=== PATIENT | male | born 1965 | race African-American/Black ===

== ENCOUNTER 2024-05-03 15:45 | Inpatient (IN) | payer MEDICAID ==
[~2024-05-03] VITALS: Ht 175.3 cm; Wt 79.8 kg
[2024-05-03 15:45] VITALS: BP 127/87; PULSE 89; RESP 20; TEMP 36.4
[2024-05-03] MEDS: BLOOD SUGAR DIAGNOSTIC STRIP TEST SCH (17:00)
[2024-05-03] MEDS: INSULIN LISPRO 100 UNITS/ML SUBCUT SCH (17:00)
[2024-05-03] MEDS ORDERED: CLONIDINE 0.1MG TABLET PO PRN (17:00)
[2024-05-03] MEDS ORDERED: DEXTROSE 50% WATER 50ML SYRINGE IV PRN (17:00)
[2024-05-03 20:00] VITALS: BP 129/47; PULSE 70; RESP 20; TEMP 36.1; O2SAT 99
[2024-05-03] MEDS: ATORVASTATIN CALCIUM 40MG TABLET PO SCH (21:43)
[2024-05-04 08:00] VITALS: BP 144/86; PULSE 96; RESP 18; TEMP 36.2; O2SAT 99
[2024-05-04] MEDS: ENOXAPARIN 40MG/0.4ML SYR SUBCUT SCH (10:17)
[2024-05-04] MEDS: CLOPIDOGREL 75MG TABLET PO SCH (10:18)
[2024-05-04] MEDS: ASPIRIN 81MG TABLET PO SCH (10:18)
[2024-05-04 10:44] LABS: BASOPHILS % 0.2 % (0.0-2.0); EOSINOPHILS % 3.1 % (0.0-5.0); HEMATOCRIT. 40.6 % (42.0-52.0); HEMOGLOBIN. 13.6 g/dL (14.0-18.0); MEAN CORPUSCULAR HEMOGLOBIN 28.5 pg (28.0-32.0); MEAN CORPUSCULAR HGB CONC 33.4 g/dL (31.0-37.0); MEAN CORPUSCULAR VOLUME 85.3 fL (80.0-94.0); MEAN PLATELET VOLUME 7.7 fl (7.4-10.4); MONOCYTES % 7.3 % (2.0-8.0); NEUTROPHILS % 67.4 % (40.0-76.0); PLATELET 204 x1000/uL (130-400); RED BLOOD CELL COUNT 4.76 mill/uL (4.7-6.1); RED CELL DISTRIBUTION WIDTH 13.6 % (11.6-14.6); WHITE BLOOD COUNT 5.9 x1000/uL (4.5-11.0)
[2024-05-04 10:57] LABS: CHLORIDE 106 mEq/L (98-107); POTASSIUM 4.1 mEq/L (3.5-5.1); SODIUM 138 mEq/L (136-145)
[2024-05-04 10:58] LABS: CALCIUM 9.2 mg/dL (8.7-10.4); CARBON DIOXIDE 23 mEq/L (21-32)
[2024-05-04 11:03] LABS: UREA NITROGEN BLOOD 11 mg/dL (9-23)
[2024-05-04 11:05] LABS: ALANINE AMINOTRANSFERASE 21 IU/L (10-49); ASPARTATE AMINOTRANSFERASE 23 IU/L (<34); BILIRUBIN TOTAL 0.6 mg/dL (0.1-1.0); PREALBUMIN 18.8 mg/dl (10.0-40.0); PROTEIN TOTAL 7.1 g/dL (6.0-8.3)
[2024-05-04 11:18] LABS: GLUCOSE 200 mg/dL (70-105)
[2024-05-04 20:00] VITALS: BP 135/88; PULSE 83; RESP 17; TEMP 36.6; O2SAT 100
[2024-05-05 08:00] VITALS: BP 157/79; PULSE 60; RESP 20; TEMP 36.2; O2SAT 98
[2024-05-05 09:35] LABS: CHLORIDE 109 mEq/L (98-107); POTASSIUM 4.3 mEq/L (3.5-5.1); SODIUM 143 mEq/L (136-145)
[2024-05-05 09:36] LABS: CARBON DIOXIDE 26 mEq/L (21-32)
[2024-05-05 09:37] LABS: CALCIUM 9.1 mg/dL (8.7-10.4)
[2024-05-05 09:38] LABS: BASOPHILS % 0.4 % (0.0-2.0); EOSINOPHILS % 3.2 % (0.0-5.0); HEMATOCRIT. 41.7 % (42.0-52.0); LYMPHOCYTES % 27.7 % (20.0-50.0); MEAN CORPUSCULAR HEMOGLOBIN 28.7 pg (28.0-32.0); MEAN CORPUSCULAR HGB CONC 33.6 g/dL (31.0-37.0); MEAN CORPUSCULAR VOLUME 85.4 fL (80.0-94.0); MEAN PLATELET VOLUME 8.1 fl (7.4-10.4); MONOCYTES % 7.6 % (2.0-8.0); NEUTROPHILS % 61.1 % (40.0-76.0); PLATELET 219 x1000/uL (130-400); RED BLOOD CELL COUNT 4.88 mill/uL (4.7-6.1); RED CELL DISTRIBUTION WIDTH 13.4 % (11.6-14.6); WHITE BLOOD COUNT 4.6 x1000/uL (4.5-11.0)
[2024-05-05 09:41] LABS: GLUCOSE 152 mg/dL (70-105); IRON 83 ug/dL (65-175)
[2024-05-05 09:42] LABS: UREA NITROGEN BLOOD 12 mg/dL (9-23)
[2024-05-05 09:43] LABS: ALANINE AMINOTRANSFERASE 24 IU/L (10-49); ALBUMIN 4.2 g/dL (3.2-4.8); ASPARTATE AMINOTRANSFERASE 24 IU/L (<34)
[2024-05-05 09:44] LABS: BILIRUBIN TOTAL 0.7 mg/dL (0.1-1.0); PROTEIN TOTAL 7.7 g/dL (6.0-8.3); TOTAL IRON BINDING CAPACITY 250 ug/dl (250-425)
[2024-05-05 09:46] LABS: THYROID STIMULATING HORMONE 1.61 uIU/mL (0.55-4.78)
[2024-05-05 09:47] LABS: FERRITIN 347 ng/mL (22-322); FOLIC ACID (FOLATE) SERUM 19.08 ng/mL (>5.38); VITAMIN B12 SERUM 674 pg/mL (211-911)
[2024-05-05 20:00] VITALS: BP 124/62; PULSE 92; RESP 19; TEMP 36.4; O2SAT 98
[2024-05-06 08:00] VITALS: BP 121/56; PULSE 56; RESP 20; TEMP 36.3; O2SAT 98
[2024-05-06 11:51] LABS: BASOPHILS % 0.3 % (0.0-2.0); EOSINOPHILS % 3.6 % (0.0-5.0); HEMATOCRIT. 40.5 % (42.0-52.0); HEMOGLOBIN. 13.6 g/dL (14.0-18.0); LYMPHOCYTES % 25.3 % (20.0-50.0); MEAN CORPUSCULAR HEMOGLOBIN 28.7 pg (28.0-32.0); MEAN CORPUSCULAR HGB CONC 33.6 g/dL (31.0-37.0); MEAN CORPUSCULAR VOLUME 85.4 fL (80.0-94.0); MEAN PLATELET VOLUME 7.9 fl (7.4-10.4); MONOCYTES % 6.3 % (2.0-8.0); NEUTROPHILS % 64.5 % (40.0-76.0); PLATELET 254 x1000/uL (130-400); RED BLOOD CELL COUNT 4.75 mill/uL (4.7-6.1); RED CELL DISTRIBUTION WIDTH 13.4 % (11.6-14.6); WHITE BLOOD COUNT 4.6 x1000/uL (4.5-11.0)
[2024-05-06 11:55] LABS: CHLORIDE 103 mEq/L (98-107); SODIUM 139 mEq/L (136-145)
[2024-05-06 11:56] LABS: CALCIUM 9.4 mg/dL (8.7-10.4); CARBON DIOXIDE 27 mEq/L (21-32)
[2024-05-06 12:01] LABS: GLUCOSE 240 mg/dL (70-105); UREA NITROGEN BLOOD 15 mg/dL (9-23)
[2024-05-06 20:00] VITALS: BP 108/55; PULSE 70; RESP 18; TEMP 36.9; O2SAT 96
[2024-05-07 08:00] VITALS: BP 123/77; PULSE 76; RESP 19; TEMP 36.4; O2SAT 98
[2024-05-07] MEDS: LACTULOSE 20G/30ML UDC PO PRN (13:00)
[2024-05-07] MEDS: DOCUSATE SODIUM 100MG CAPSULE PO PRN (13:00)
[2024-05-07 20:00] VITALS: BP 112/92; PULSE 91; RESP 19; TEMP 36.5; O2SAT 100
[2024-05-08 08:00] VITALS: BP 120/75; PULSE 64; RESP 20; TEMP 36.1; O2SAT 100
[2024-05-08] MEDS: ERGOCALCIFEROL 50000UNITS CAPSULE PO SCH (13:07)
[2024-05-08 19:35] VITALS: BP 113/69; PULSE 95; RESP 20; TEMP 36.2; O2SAT 100
[2024-05-09 08:00] VITALS: BP 116/50; PULSE 59; RESP 18; TEMP 36.5; O2SAT 96
[2024-05-09 20:00] VITALS: BP 120/74; PULSE 94; RESP 18; TEMP 36.7; O2SAT 99
[2024-05-10 08:00] VITALS: BP 129/78; PULSE 75; RESP 20; TEMP 36.2; O2SAT 100
[2024-05-10 20:01] VITALS: BP 107/49; PULSE 61; RESP 20; TEMP 36.2; O2SAT 100
[2024-05-11 08:00] VITALS: BP 114/70; PULSE 55; RESP 18; TEMP 36.5; O2SAT 96
[2024-05-11 20:00] VITALS: BP 125/72; PULSE 74; RESP 16; TEMP 36.2; O2SAT 97
[2024-05-12 08:00] VITALS: BP 114/47; PULSE 58; RESP 18; TEMP 36.1; O2SAT 96
[2024-05-12 08:22] LABS: BASOPHILS % 0.3 % (0.0-2.0); EOSINOPHILS % 3.8 % (0.0-5.0); HEMATOCRIT. 33.7 % (42.0-52.0); HEMOGLOBIN. 11.6 g/dL (14.0-18.0); LYMPHOCYTES % 22.9 % (20.0-50.0); MEAN CORPUSCULAR HEMOGLOBIN 29.3 pg (28.0-32.0); MEAN CORPUSCULAR HGB CONC 34.4 g/dL (31.0-37.0); MEAN CORPUSCULAR VOLUME 85.4 fL (80.0-94.0); MEAN PLATELET VOLUME 7.7 fl (7.4-10.4); MONOCYTES % 8.3 % (2.0-8.0); NEUTROPHILS % 64.7 % (40.0-76.0); PLATELET 227 x1000/uL (130-400); RED BLOOD CELL COUNT 3.94 mill/uL (4.7-6.1); RED CELL DISTRIBUTION WIDTH 13.3 % (11.6-14.6); WHITE BLOOD COUNT 5.3 x1000/uL (4.5-11.0)
[2024-05-12 08:30] LABS: CALCIUM 8.7 mg/dL (8.7-10.4); CHLORIDE 106 mEq/L (98-107); POTASSIUM 4.2 mEq/L (3.5-5.1); SODIUM 139 mEq/L (136-145)
[2024-05-12 08:31] LABS: CARBON DIOXIDE 27 mEq/L (21-32)
[2024-05-12 08:36] LABS: GLUCOSE 300 mg/dL (70-105); UREA NITROGEN BLOOD 12 mg/dL (9-23)
[2024-05-12 22:01] VITALS: BP 102/49; PULSE 63; RESP 18; TEMP 36.7; O2SAT 99
[2024-05-13 08:00] VITALS: BP 128/74; PULSE 60; RESP 18; TEMP 36.1; O2SAT 96
[2024-05-13] MEDS: INSULIN GLARGINE 100 UNITS/ML SUBCUT SCH (10:00)
[2024-05-13 20:00] VITALS: BP 115/58; PULSE 67; RESP 18; TEMP 36.7; O2SAT 99
[2024-05-14 08:00] VITALS: BP 128/77; PULSE 89; RESP 20; TEMP 36.3; O2SAT 100
[2024-05-14 20:00] VITALS: BP 135/80; PULSE 76; RESP 18; TEMP 36.5; O2SAT 98
[2024-05-15 08:00] VITALS: BP 129/80; PULSE 91; RESP 20; TEMP 36.6; O2SAT 98
[2024-05-15 20:00] VITALS: BP 135/74; PULSE 73; RESP 19; TEMP 36.8; O2SAT 99
[2024-05-16 08:00] VITALS: BP 125/80; PULSE 80; RESP 18; TEMP 36.4; O2SAT 100
[2024-05-16 20:00] VITALS: BP 107/59; PULSE 80; RESP 18; TEMP 36.4; O2SAT 100
[2024-05-17 08:00] VITALS: BP 127/82; PULSE 85; RESP 20; TEMP 36.1; O2SAT 99
[2024-05-17] MEDS: INSULIN GLARGINE 100 UNITS/ML SUBCUT SCH (10:27)
[2024-05-17 20:00] VITALS: BP 100/62; PULSE 70; RESP 18; TEMP 36.4; O2SAT 98
[2024-05-18 08:00] VITALS: BP 125/85; PULSE 69; TEMP 36.4
[2024-05-18 20:00] VITALS: BP 100/57; PULSE 66; RESP 20; TEMP 36.7; O2SAT 98
[2024-05-19 08:00] VITALS: BP 138/78; PULSE 95; RESP 19; TEMP 35.9; O2SAT 100
[2024-05-19 20:00] VITALS: BP 127/87; PULSE 86; RESP 18; TEMP 36.6; O2SAT 99
[2024-05-20 06:06] LABS: BASOPHILS % 0.2 % (0.0-2.0); EOSINOPHILS % 4.5 % (0.0-5.0); HEMATOCRIT. 33.3 % (42.0-52.0); HEMOGLOBIN. 11.2 g/dL (14.0-18.0); LYMPHOCYTES % 21.3 % (20.0-50.0); MEAN CORPUSCULAR HEMOGLOBIN 29.3 pg (28.0-32.0); MEAN CORPUSCULAR HGB CONC 33.7 g/dL (31.0-37.0); MEAN PLATELET VOLUME 7.7 fl (7.4-10.4); MONOCYTES % 8.7 % (2.0-8.0); NEUTROPHILS % 65.3 % (40.0-76.0); PLATELET 205 x1000/uL (130-400); RED BLOOD CELL COUNT 3.83 mill/uL (4.7-6.1); RED CELL DISTRIBUTION WIDTH 13.3 % (11.6-14.6); WHITE BLOOD COUNT 4.7 x1000/uL (4.5-11.0)
[2024-05-20 06:21] LABS: CARBON DIOXIDE 27 mEq/L (21-32); CHLORIDE 104 mEq/L (98-107); POTASSIUM 4.5 mEq/L (3.5-5.1); SODIUM 139 mEq/L (136-145)
[2024-05-20 06:25] LABS: CREATININE 1.1 mg/dL (0.6-1.3)
[2024-05-20 06:26] LABS: GLUCOSE 258 mg/dL (70-105)
[2024-05-20 06:27] LABS: UREA NITROGEN BLOOD 15 mg/dL (9-23)
[2024-05-20 08:00] VITALS: BP 105/78; PULSE 75; RESP 18; TEMP 40.6; O2SAT 97
[2024-05-20 20:00] VITALS: BP 128/67; PULSE 76; RESP 18; TEMP 36.2; O2SAT 99
[2024-05-21 08:00] VITALS: BP 108/72; PULSE 81; RESP 19; TEMP 36.7; O2SAT 100
[2024-05-21 20:00] VITALS: BP 119/87; PULSE 81; RESP 18; TEMP 36.7; O2SAT 95
[2024-05-22 08:00] VITALS: BP 118/69; PULSE 83; RESP 20; TEMP 36.2; O2SAT 95
[2024-05-22 11:10] VITALS: BP 118/69; PULSE 83; RESP 20; TEMP 36.2; O2SAT 96
[2024-05-22 20:30] VITALS: BP 149/86; PULSE 79; RESP 18; TEMP 36.7; O2SAT 99
[2024-05-23 08:00] VITALS: BP 120/80; PULSE 70; RESP 18; TEMP 36.5; O2SAT 100
[2024-05-23 20:00] VITALS: BP 124/76; PULSE 89; RESP 18; TEMP 36.7; O2SAT 97
[2024-05-24 08:00] VITALS: BP 147/86; PULSE 82; RESP 18; TEMP 36.7; O2SAT 100
[2024-05-24 20:00] VITALS: BP 115/76; PULSE 97; RESP 18; TEMP 37.1; O2SAT 97
[2024-05-24] MEDS ORDERED: ENOXAPARIN 40MG/0.4ML SYR SUBCUT SCH (20:00)
[2024-05-24] MEDS: ENOXAPARIN 40MG/0.4ML SYR SUBCUT SCH (20:47)
[2024-05-25 08:00] VITALS: BP 122/72; PULSE 76; RESP 18; TEMP 36.1; O2SAT 99
[2024-05-25 20:30] VITALS: BP 128/96; PULSE 75; RESP 20; TEMP 36.4; O2SAT 100
[2024-05-26 08:00] VITALS: BP 119/77; PULSE 79; RESP 18; TEMP 36; O2SAT 97
[2024-05-26 20:00] VITALS: BP 134/71; PULSE 88; RESP 19; TEMP 36.5; O2SAT 99
[2024-05-27 08:00] VITALS: BP 125/53; PULSE 57; RESP 16; TEMP 36.7; O2SAT 96
[2024-05-27 20:00] VITALS: BP 134/85; PULSE 99; RESP 18; TEMP 36.1; O2SAT 99
[2024-05-28 08:00] VITALS: BP 144/85; PULSE 78; RESP 18; TEMP 37
[2024-05-29 08:00] VITALS: BP 129/76; PULSE 74; RESP 19; TEMP 36.4; O2SAT 97
[2024-05-29 19:58] VITALS: BP 147/68; PULSE 80; RESP 20; TEMP 36.2; O2SAT 100
[2024-05-30 08:00] VITALS: BP 141/86; PULSE 78; RESP 17; TEMP 36.8; O2SAT 98
[2024-05-30 20:00] VITALS: BP 99/58; PULSE 69; RESP 18; TEMP 36.5; O2SAT 99
[2024-05-31 08:00] VITALS: BP 120/78; PULSE 80; RESP 16; TEMP 36.7; O2SAT 97
[2024-05-31 20:00] VITALS: BP 146/77; PULSE 74; RESP 20; TEMP 36.5; O2SAT 98
[2024-05-31] MEDS ORDERED: DEXTROSE 50% WATER 50ML SYRINGE IV PRN (20:15)
[2024-05-31] MEDS: BLOOD SUGAR DIAGNOSTIC STRIP TEST SCH (21:58)
[2024-05-31] MEDS: INSULIN LISPRO 100 UNITS/ML SUBCUT SCH (22:19)
[2024-06-01 08:00] VITALS: BP 135/70; PULSE 74; RESP 19; TEMP 36.4; O2SAT 95
[2024-06-01 20:06] VITALS: BP 120/65; PULSE 82; RESP 20; TEMP 36.3; O2SAT 100
[2024-06-02 07:02] LABS: CHLORIDE 108 mEq/L (98-107); POTASSIUM 4.3 mEq/L (3.5-5.1); SODIUM 142 mEq/L (136-145)
[2024-06-02 07:03] LABS: CARBON DIOXIDE 29 mEq/L (21-32)
[2024-06-02 07:08] LABS: GLUCOSE 135 mg/dL (70-105); UREA NITROGEN BLOOD 14 mg/dL (9-23)
[2024-06-02 07:10] LABS: ALANINE AMINOTRANSFERASE 55 IU/L (10-49); ALBUMIN 3.7 g/dL (3.2-4.8); ASPARTATE AMINOTRANSFERASE 29 IU/L (<34); BILIRUBIN TOTAL 0.4 mg/dL (0.1-1.0)
[2024-06-02 07:10] LABS: BASOPHILS % 0.4 % (0.0-2.0); EOSINOPHILS % 5.5 % (0.0-5.0); HEMOGLOBIN. 12.2 g/dL (14.0-18.0); LYMPHOCYTES % 26.9 % (20.0-50.0); MEAN CORPUSCULAR HEMOGLOBIN 28.6 pg (28.0-32.0); MEAN CORPUSCULAR HGB CONC 33.9 g/dL (31.0-37.0); MEAN CORPUSCULAR VOLUME 84.5 fL (80.0-94.0); MEAN PLATELET VOLUME 7.7 fl (7.4-10.4); MONOCYTES % 7.9 % (2.0-8.0); NEUTROPHILS % 59.3 % (40.0-76.0); PLATELET 210 x1000/uL (130-400); RED BLOOD CELL COUNT 4.26 mill/uL (4.7-6.1); RED CELL DISTRIBUTION WIDTH 13.5 % (11.6-14.6); WHITE BLOOD COUNT 3.9 x1000/uL (4.5-11.0)
[2024-06-02 07:11] LABS: PROTEIN TOTAL 6.8 g/dL (6.0-8.3)
[2024-06-02 08:00] VITALS: BP 132/81; PULSE 84; RESP 18; TEMP 36.2; O2SAT 97
[2024-06-02 20:00] VITALS: BP 119/79; PULSE 81; RESP 18; TEMP 36.8; O2SAT 97
[2024-06-03 08:00] VITALS: BP 124/65; PULSE 69; RESP 19; TEMP 36.3; O2SAT 98
[2024-06-03 20:00] VITALS: BP 114/73; PULSE 80; RESP 18; TEMP 36.6; O2SAT 97
[2024-06-04 08:00] VITALS: BP 142/85; PULSE 78; RESP 20; TEMP 36.8; O2SAT 99
[2024-06-04 20:00] VITALS: BP 125/81; PULSE 83; RESP 18; TEMP 36.6; O2SAT 95
[2024-06-05 08:00] VITALS: BP 138/63; PULSE 85; RESP 20; TEMP 36.2; O2SAT 97
[2024-06-05 20:00] VITALS: BP 125/80; PULSE 90; RESP 18; TEMP 36.7; O2SAT 99
[2024-06-06 07:49] VITALS: BP 96/71; PULSE 58; RESP 20; TEMP 36.4; O2SAT 99
[2024-06-06 20:00] VITALS: BP 115/79; PULSE 96; RESP 19; TEMP 36.4; O2SAT 99
[2024-06-07 08:00] VITALS: BP 123/75; PULSE 80; RESP 18; TEMP 35.9; O2SAT 98
[2024-06-07 20:05] VITALS: BP 113/70; PULSE 91; RESP 20; TEMP 36.5; O2SAT 98
[2024-06-07] MEDS: ATORVASTATIN CALCIUM 40MG TABLET PO SCH (21:13)
[2024-06-08 08:00] VITALS: BP 131/73; PULSE 74; RESP 18; TEMP 35.7; O2SAT 97
[2024-06-08 10:26] VITALS: BP 131/73; PULSE 74; TEMP 96.3; O2SAT 97
[2024-06-08] MEDS ORDERED: LIP40 PO (11:00)
[2024-06-08] MEDS ORDERED: LANTUSUD SUBCUT (11:00)
[2024-06-08] MEDS ORDERED: CLOP-31 MT (11:00)
== END 2024-06-08 13:45 | disposition home health service (06) | DRG 58 ==
PROVIDERS: ADMIT Physical Medicine & Rehabilitation Spinal Cord Injury Medicine; ATTEND Internal Medicine
DX: I69.354 Hemiplegia and hemiparesis following cerebral infarction affecting left non-dominant side (principal); D64.9 Anemia, unspecified; E11.65 Type 2 diabetes mellitus with hyperglycemia; E78.00 Pure hypercholesterolemia, unspecified; E55.9 Vitamin D deficiency, unspecified; E78.5 Hyperlipidemia, unspecified; I10 Essential (primary) hypertension; I69.322 Dysarthria following cerebral infarction; Z83.3 Family history of diabetes mellitus; Z87.891 Personal history of nicotine dependence; Z91.81 History of falling; Z79.899 Other long term (current) drug therapy
CPT/HCPCS: 36415; 80048; 80053; 82306; 82607; 82728; 82746; 82962; 83036; 83540; 83550; 84134; 84443; 85025; 92523; 92610; 93970; 97110; 97112; 97116; 97150; 97162; 97166; 97530; 97535; 97542; A4565; A4606; J1650; J1815

== ENCOUNTER 2024-07-09 12:29 | Emergency (ER) | payer MEDICAID, OTHER ==
[~2024-07-09] VITALS: Ht 175.3 cm; Wt 72.7 kg
[~2024-07-09 12:29] MED LIST: CLOP-31 MT; LANTUSUD SUBCUT; LIP40 PO
[2024-07-09 12:31] VITALS: O2SAT 100
[2024-07-09 12:39] VITALS: BP 153/81; PULSE 90; RESP 18; TEMP 36.9; O2SAT 98
[2024-07-09] MEDS ORDERED: LIP40 PO (16:55)
[2024-07-09] MEDS ORDERED: CLOP-31 MT (16:55)
== END 2024-07-09 16:57 | disposition home or self-care (01) ==
LOC: ER 12:29
DX: R60.0 Localized edema (principal); Z79.899 Other long term (current) drug therapy
CPT/HCPCS: 93971; 99284